=== PATIENT | male | born 1970 | race African-American/Black ===

== ENCOUNTER 2016-10-21 04:51 | Emergency (ER) | payer OTHER ==
[~2016-10-21] VITALS: Ht 182.9 cm; Wt 152.5 kg
[~2016-10-21 04:51] MED LIST: ATEN50TA PO; GABA300C16 PO; LEVO500T72 PO; LISI40TA9 PO; MTF1000T PO; ZOC10 PO
[2016-10-21 04:55] VITALS: Ht 182.9 cm; Wt 152.5 kg
[2016-10-21] MEDS ORDERED: LIDOCAINE 2% (MDV) 20 ML INJ INJ ONE (06:00)
[2016-10-21] MEDS ORDERED: SULF1TAB31 PO (06:19)
[2016-10-21] MEDS ORDERED: CEPH-443 PO (06:19)
[2016-10-21] MEDS ORDERED: IBUP-1542 PO (06:30)
[2016-10-21] MEDS ORDERED: KET2CR15 TOP (06:33)
[2016-10-21] MEDS ORDERED: NYST1000 PO (06:33)
--- NOTE | 2016-10-21 07:07 | ERA ---
ER Documentation Chief Complaint Date/Time DATE: 10/21/16 TIME: 06:52 Chief Complaint abscess back of the head area, accu check -325 asymptomatic HPI This is a 46-year-old male with a history of diabetes mellitus type 2 that is controlled with metformin who is presenting with a chief complaint of abscess on the back of his head. Patient has had symptoms like this before including a pilonidal cyst that was surgically removed 3 years ago. Patient states that the cyst arise 2-3 days ago and is painful to touch. Patient has not taken any medications to relieve the symptoms. Pt denies weight loss, fevers, chills, rigors, nausea, vomiting, diarrhea, constipation, hyperhidrosis, fatigue, difficulty breathing, chest pain, polyuria, polydipsia, dizziness, syncope/ presyncope, or change in bowl/bladder habits. Patient is also complaining of sore lesions on the edge of his lips. Patient states that the symptoms started 1-2 weeks ago and are mildly painful worse when opening the mouth wide. Patient is currently undergoing stress as well as he is preparing to. His father. Denies any family history of cancer, heart disease or asthma. Patient denies drug use, alcohol abuse or other medical conditions. Patient's vaccination status is up-to-date. I have reviewed the nursing notes and previous documents and they are consistent with a history given. Pt denies weight loss, fevers, nausea, vomiting, diarrhea, constipation, hyperhidrosis, rigors, fatigue, difficulty breathing, chest pain, or change in bowl/bladder habits. ROS All systems reviewed and are negative except as per history of present illness. Medications Home Meds Active Scripts Ketoconazole* (Ketoconazole* 2% Cream (15gm)) 1 Applic Cr, 1 APPLIC TOP BID for 14 Days, TUB Prov:CRESCENCIO LAURENT PA-C 10/21/16 Nystatin (Nystatin) 100,000 Unit/1 Ml Oral.susp, 4 ML PO QID for 7 Days, OZ Swish and swallow Prov:CRESCENCIO LAURENT PA-C 10/21/16 Ibuprofen* (Motrin*) 600 Mg Tab, 600 MG PO Q6, #30 TAB Prov:CRESCENCIO LAURENT PA-C 10/21/16 Sulfamethoxazole/Trimethoprim* (Bactrim Ds* Tablet) 1 Each Tablet, 1 TAB PO BID for 7 Days, #14 TAB Prov:CRESCENCIO LAURENT PA-C 10/21/16 Cephalexin* (Keflex*) 500 Mg Capsule, 500 MG PO QID for 5 Days, CAP Prov:CRESCENCIO LAURENT PA-C 10/21/16 Levofloxacin* (Levaquin*) 500 Mg Tablet, 500 MG PO DAILY for 7 Days, TAB Prov:DONOVAN GALVAN MD 09/19/15 Reported Medications Simvastatin (Simvastatin) 10 Mg Tablet, 10 MG PO DAILY, #30 TAB 09/16/15 Metformin* (Glucophage*) 1,000 Mg Tablet, 1000 MG PO BID, #60 TAB 09/15/15 Lisinopril* (Lisinopril*) 40 Mg Tablet, 40 MG PO DAILY, #30 TAB 09/15/15 Gabapentin* (Gabapentin*) 300 Mg Capsule, 300 MG PO BID, CAP 11/13/13 Atenolol* (Atenolol*) 50 Mg Tablet, 50 MG PO DAILY, 0 Refills 11/08/11 Allergies Allergies: Coded Allergies: Erythromycin Base (Verified Allergy, Intermediate, VOMITING , 06/01/14) azithromycin (Unverified Allergy, Unknown, VOMITING , 06/01/14) PMhx/Soc Medical and Surgical Hx: pt denies Surgical Hx History of Surgery: No Anesthesia Reaction: No Hx Neurological Disorder: No Hx Respiratory Disorders: No Hx Cardiac Disorders: No Hx Psychiatric Problems: Yes ( Bipolar, ) Hx Miscellaneous Medical Probl: Yes (htn, DM,obesity) Hx Alcohol Use: Yes (reports "a long time ago") Hx Substance Use: No Hx Tobacco Use: Yes Smoking Status: Current every day smoker Physical Exam Vitals Vital Signs Date Time Temp Pulse Resp B/P Pulse Ox O2 Delivery O2 Flow Rate FiO2 10/21/16 04:55 98.3 93 20 175/92 100 Physical Exam Const: Morbidly obese. Well-nourished. No acute distress. Head: As noted in skin exam. Normocephalic, Atraumatic. Eyes: Non-injected; No scleral erythema, discharge or foreign body. EOMI and JOY bilaterally. Ears: Normal External Ears, EACs clear, TM normal bilaterally without erythema. Nose: Normal nose without discharge, septal deviation, or sinus tenderness. Oral: White angular cheilosis bilaterally. A 3-4 mm round elevated nontender area of tongue without signs of infection. No oral edema visualized. Mucous membranes moist and pink. Neck: No cervical lymphadenopathy, masses or goiter palpated. Full range of motion. Supple. Trachea midline. ~ No meningismus. Pulm: Good air movement in upper and lower respiratory tracts. No dyspnea, stridor, tripoding or drooling. Clear to auscultation bilaterally. Cardio: Regular rate and rhythm; No murmurs, gallops or rubs auscultated. No JVD grossly observed. Radial and posterior tibial pulses 2+ bilaterally. No cyanosis. Capillary refill less than 2 seconds. Abd: Soft, non tender, non distended. No guarding, masses. Normal bowel sounds. No McBurney's point tenderness. MS: Normal motor strength, normal tone with gross examination. Skin: 7-8 cm indurated, tender nonfluctuant area on the left posterior portion of the scalp along the area of the occipital suture. There is no streaking or skin color changes noted. The area is warm to touch. No petechiae or rashes. No ulcer, jaundice. Good turgor. Back: No midline, flank or CVA tenderness. Ext: No cyanosis, or edema. Normal movement of all extremities grossly observed. Neur: Awake, alert and oriented x3. Neurovascularly intact bilaterally. Psych: Normal Mood and Affect. Results 24 hrs Laboratory Tests Test 10/21/16 04:59 Bedside Glucose 325mg/dL Current Medications Medications (Trade) Dose Ordered Sig/Angelo Route PRN Reason Start Time Stop Time Status Last Admin Dose Admin Lidocaine (Xylocaine 2% (Mdv) 20 ml) 20 ml ONCE ONCE INJ 10/21/16 06:00 10/21/16 06:30 DC Procedures/MDM Patient is presenting with a chief complaint of abscess on the back of the head and angular cheilosis as noted in the history and physical examination. Physical examination also revealed a nontender lump on the anterior portion of the tongue is noted in the physical exam portion. Patient states that he recalls possibly putting down on his tongue a few months ago that might have caused the lesion on the tongue. At this time a very low suspicion for acute pathology or edema or endangerment of the airway. I have told the patient that he should follow-up with primary care physician for possible referral to a specialist and biopsy of tongue. Patient's findings on the posterior school are most consistent with abscess without fluctuant material versus cellulitis. At this time I do not believe that the area needs to be drained. Will be prescribed Keflex and Bactrim p.o. 7 days with reevaluation in 5 days. Patient has verbally stated that he understands and agrees to the plan of management. Patient will also be given ibuprofen for pain relief. Patient's angular cheilosis is most likely caused from decreased immune system from diabetes and recent stress. Patient will be given nystatin swish and swallow as well as topical ketoconazole cream for treatment of angular chilosis. At this time I have little suspicion for iron deficiency anemia or other causes of angular cheilosis. Capillary refill is less than 2 seconds and patient's vitals are within normal limits. I have little suspicion for hypotension or other cardiac pathologies. Also little suspicion for leukoplakia, bacteremia, lymphangitis, meningitis, trauma, or other serious bacterial infections. I presented the case to my attending who agrees with my assessment and plan. I will go ahead and discharge the patient at this time with discharge instructions and return precautions. I have also advised the patient to follow- up with his PCP in the next 1-3 days and he has verbally stated that he understands we will not be able to make a total for 5 days. I told him this is okay if he returns to the emergency department immediately if symptoms worsen or change. Patient's vitals are stable and his current condition is appropriate for discharge. Departure Diagnosis: Primary Impression: Cellulitis Qualified Code: L03.811 - Cellulitis of head except face Additional Impressions: Acute abscess Angular cheilitis Lesion of tongue Condition: Stable Patient Instructions: Cellulitis Additional Instructions: Follow up with your PCP within the next 5 days for a more thorough evaluation and a possible referral to a specialist. Return the the emergency department immediately if symptoms worsen or change. If you have any questions regarding medications, ask your pharmacist or us before you leave. If any adverse reactions occur while taking your medications, discontinue the treatment and return to the emergency department immediately. Take your medications as directed, and complete the entire course of treatment. CRESCENCIO LAURENT PA-C Oct 21, 2016 07:03
== END 2016-10-21 07:09 | disposition home or self-care (01) ==
LOC: FTE 04:51
DX: L03.811 Cellulitis of head [any part, except face] (principal); K13.0 Diseases of lips; K14.8 Other diseases of tongue; I10 Essential (primary) hypertension; E11.9 Type 2 diabetes mellitus without complications; E66.9 Obesity, unspecified; F17.210 Nicotine dependence, cigarettes, uncomplicated; Z79.84 Long term (current) use of oral hypoglycemic drugs; Z68.42 Body mass index [BMI] 45.0-49.9, adult
CPT/HCPCS: 82962; Z7502; 99284

== ENCOUNTER 2017-01-05 09:34 | Emergency (ER) | payer OTHER ==
[~2017-01-05] VITALS: Ht 177.8 cm; Wt 151.5 kg
[~2017-01-05 09:34] MED LIST changes: +CEPH-443 PO; +IBUP-1542 PO; +KET2CR15 TOP; +NYST1000 PO; +SULF1TAB31 PO
[2017-01-05 09:39] VITALS: Ht 177.8 cm; Wt 151.5 kg
--- NOTE | 2017-01-05 10:30 | ERD ---
ER Documentation Chief Complaint Date/Time DATE: 01/05/17 TIME: 10:26 Chief Complaint Pt bib family with c/o abscess to back of neck, HPI Is a 46-year-old male with history of diabetes, hypertension presents the ED for concerns of an mass to the back of his neck. Patient states that he has seen his primary care physician as well as been seen here in the emergency department for similar concerns in the past. Patient reports taking Bactrim and Keflex twice for his abscess. Patient reports increasing size. Patient reports no warmth. No swelling. Patient denies any fevers or chills. Patient is compliant with his DM medications. Patient denies any trauma or fall injuries.Patient denied any enlarged lymph nodes in his axilla. ROS All systems reviewed and are negative except as per history of present illness. Medications Home Meds Active Scripts Ketoconazole* (Ketoconazole* 2% Cream (15gm)) 1 Applic Cr, 1 APPLIC TOP BID for 14 Days, TUB Prov:CRESCENCIO LAURENT PA-C 10/21/16 Nystatin (Nystatin) 100,000 Unit/1 Ml Oral.susp, 4 ML PO QID for 7 Days, OZ Swish and swallow Prov:CRESECNCIO LAURENT PA-C 10/21/16 Ibuprofen* (Motrin*) 600 Mg Tab, 600 MG PO Q6, #30 TAB Prov:CRESCENCIO LAURENT PA-C 10/21/16 Sulfamethoxazole/Trimethoprim* (Bactrim Ds* Tablet) 1 Each Tablet, 1 TAB PO BID for 7 Days, #14 TAB Prov:CRESCENCIO LAURENT PA-C 10/21/16 Cephalexin* (Keflex*) 500 Mg Capsule, 500 MG PO QID for 5 Days, CAP Prov:CRESCENCIO LAURENT PA-C 10/21/16 Levofloxacin* (Levaquin*) 500 Mg Tablet, 500 MG PO DAILY for 7 Days, TAB Prov:DONOVAN GALVAN MD 09/19/15 Reported Medications Simvastatin (Simvastatin) 10 Mg Tablet, 10 MG PO DAILY, #30 TAB 09/16/15 Metformin* (Glucophage*) 1,000 Mg Tablet, 1000 MG PO BID, #60 TAB 09/15/15 Lisinopril* (Lisinopril*) 40 Mg Tablet, 40 MG PO DAILY, #30 TAB 09/15/15 Gabapentin* (Gabapentin*) 300 Mg Capsule, 300 MG PO BID, CAP 11/13/13 Atenolol* (Atenolol*) 50 Mg Tablet, 50 MG PO DAILY, 0 Refills 11/08/11 Allergies Allergies: Coded Allergies: Erythromycin Base (Verified Allergy, Intermediate, VOMITING , 06/01/14) azithromycin (Unverified Allergy, Unknown, VOMITING , 06/01/14) PMhx/Soc History of Surgery: Yes (PINEAL CYST ) Anesthesia Reaction: No Hx Neurological Disorder: No Hx Respiratory Disorders: No Hx Cardiac Disorders: No Hx Psychiatric Problems: Yes ( Bipolar, ) Hx Miscellaneous Medical Probl: Yes (htn, DM,obesity) Hx Alcohol Use: Yes (reports "a long time ago") Hx Substance Use: No Hx Tobacco Use: Yes Smoking Status: Current every day smoker Physical Exam Vitals Vital Signs Date Time Temp Pulse Resp B/P Pulse Ox O2 Delivery O2 Flow Rate FiO2 01/05/17 13:38 98.2 71 18 138/69 98 Room Air 01/05/17 09:39 98.3 86 18 138/99 98 Physical Exam GENERAL: Well-developed, well-nourished male. Appears in no acute distress. HEAD: Normocephalic, atraumatic. EYES: Pupils are equally reactive bilaterally. EOMs grossly intact. No conjunctival erythema. ENT: Moist mucous membranes. No uvula deviation. No kissing tonsils. NECK: Supple. No meningismus. Normal range of motion of the neck. Large palpable mass in the posterior neck. Minimal warmth. No swelling. No streaking. No cervical lymph nodes palpable. No supraclavicular lymph nodes palpable. LUNG: Clear to auscultation bilaterally. No rhonchi, wheezing, rales or coarse breath sounds. HEART: Regular rate and rhythm. No murmurs, rubs or gallops. EXTREMITIES: Equal pulses bilaterally. No peripheral clubbing, cyanosis or edema. No unilateral leg swelling. NEUROLOGIC: Alert and oriented. Moving all four extremities without any difficulty. Normal speech. Steady gait. SKIN: Normal color. Warm and dry. No rashes or lesions. Result Diagram: 01/05/17 1200 01/05/17 1200 Results 24 hrs Laboratory Tests Test 01/05/17 12:00 White Blood Count 7.410^3/ul Red Blood Count 5.3610^6/ul Hemoglobin 15.5g/dl Hematocrit 44.4% Mean Corpuscular Volume 82.8fl Mean Corpuscular Hemoglobin 28.9pg Mean Corpuscular Hemoglobin Concent 34.9g/dl Red Cell Distribution Width 12.5% Platelet Count 92800^3/UL Mean Platelet Volume 10.7fl Neutrophils % 57.5% Lymphocytes % 31.8% Monocytes % 6.5% Eosinophils % 3.7% Basophils % 0.4% Nucleated Red Blood Cells % 0.0/100WBC Neutrophils # (Manual) 4.210^3/ul Lymphocytes # 2.410^3/ul Monocytes # 0.510^3/ul Eosinophils # 0.310^3/ul Basophils # 0.010^3/ul Nucleated Red Blood Cells # 0.010^3/ul Sodium Level 132mmol/L Potassium Level 4.4mmol/L Chloride Level 102mmol/L Carbon Dioxide Level 25mmol/L Anion Gap 9 Blood Urea Nitrogen 12mg/dl Creatinine 0.82mg/dl Glucose Level 384mg/dl Calcium Level 9.4mg/dl Procedures/MDM ED COURSE: The patient was stable throughout ED course. I kept the patient and/or family informed of laboratory and diagnostic imaging results throughout the ED course. DIAGNOSTIC IMAGING: Read by radiologist. Patient: ANNABELLA MCNEAL : 1970 Age: 46 Sex: M MR #: [id number] DOS: 01/05/17 1005 Ordering MD: AMELIA CORTES PA-C Location: [facility] Room/Bed: PROCEDURE: Ultrasound of the soft tissues of the neck. CLINICAL INDICATION: Palpable lesion in the soft tissues of the neck posteriorly. TECHNIQUE: High-resolution sonography of the soft tissues of the neck posteriorly at the site of the palpable lesion was performed in the axial and sagittal planes. COMPARISON: None FINDINGS: At the site of the palpable lesion in the posterior neck midline, there is a heterogeneous hypoechoic irregular soft tissue mass measuring 3.9 x 2.7 x 4.1 cm. Slightly inferior to this mass, there is a second anechoic subcutaneous mass measuring 2.4 x 1.2 x 2.1 cm. There is no other cystic or solid mass. IMPRESSION: 1. Heterogeneous hypoechoic irregular soft tissue mass measuring 3.9 x 2.7 x 4.1 cm in the posterior neck midline at the site of the palpable lesion. This may be malignant. Correlation with MRI should be considered. 2. Second probably cystic mass in the midline posterior neck inferiorly. RPTAT: QQ .Cesar Parish MD, Date Time Electronically viewed and signed by .Cesar Parish MD, MD on 01/05/2017 10:53 .R/ CC: AMELIA CORTES PA-C PROCEDURES: None. MEDICAL DECISION MAKING: Patient is a 46-year-old male with past medical history of diabetes presents for concerns of an abscess to the back of his neck. Patient reports a maximum of his neck for about a month. Patient reports taking numerous courses of antibiotics. Denies any fevers or chills. Vital signs were reviewed. Patient is afebrile. Patient was not hypoxic. Ultrasound study was obtained and showed 1. Heterogeneous hypoechoic irregular soft tissue mass measuring 3.9 x 2.7 x 4.1 cm in the posterior neck midline at the site of the palpable lesion. This may be malignant. Correlation with MRI should be considered. 2. Second probably cystic mass in the midline posterior neck inferiorly. Discussed these findings with my supervising physician Dr. Dawson. He advised me to order blood work. CBC showed no evidence of systemic infection or severe anemia. CMP showed no evidence significant of electrolyte abnormalities, severe acidosis, alkalosis, renal failure. Patient's glucose was noted to be 384. Patient's bicarb was within normal limits. Low suspicion for DKA at this time given that patient denied any additional symptoms and reported not taking his DM medications this morning. At this time the patient's presentation is most consistent with posterior neck mass. Low suspicion for cellulitis, abscess, deep space infection, hematoma, carotid vessel injury. Patient was advised to follow-up with his primary care physician and obtain an referral to a ENT specialist in order to have this mass biopsied. Unable to rule out malignancy at this time. DISCHARGE: At this time, patient is stable for discharge and outpatient management. Patient was given a copy of all imaging studies obtained today.I have instructed the patient to follow-up with his/her primary care physician in 1-2 days. I have discussed with the patient the possibility of needing to see a specialist for further workup and imaging studies if symptoms persist. I have instructed the patient to promptly return to the ER for any new or worsening symptoms including increased pain, fever, nausea, vomiting, weakness or LOC. The patient and/or family expressed understanding of and agreement with this plan. All questions were answered. Home care instructions were provided. Patient's random blood sugar level was elevated (>140), but appears stable without evidence of DKA or end organ failure. I had discussion with the patient about the risk of diabetes. I have advised the patient to follow up with his/her primary care physician for outpatient monitoring and treatment for elevated blood sugar levels in 2-3 days. I have instructed the patient to return to the ER for any new or worsening symptoms including chest pain, shortness of breath, headache, confusion, abdominal pain, nausea, vomiting, weakness or LOC. Patient's blood pressure was elevated (>120/80) but appears stable without evidence of hypertensive emergency, hypertensive urgency or end-organ failure. I had discussion with the patient about the risks of hypertension. I have advised the patient to follow up with his/her primary care physician for outpatient monitoring and treatment for hypertension in 2-3 days. I have instructed the patient to return to the ER for any new or worsening symptoms including chest pain, shortness of breath, headache, blurred vision, confusion, nausea, vomiting or LOC. Disclaimer: Inadvertent spelling and grammatical errors are likely due to EHR/ dictation software use and do not reflect on the overall quality of patient care. Also, please note that the electronic time recorded on this note does not necessarily reflect the actual time of the patient encounter. Departure Diagnosis: Primary Impression: Neck mass Condition: Stable Patient Instructions: Back And Neck Pain, General, Understanding Neck Problems Referrals: ЕЛЕНА TALLEY (PCP) LEE WHEATLEY MD,UMER OSBORNE,STEFANIA WINN,SCOTT Oneil MD [facility] Additional Instructions: Follow-up with your primary care physician for referral to an ENT specialist for further management of your neck mass. Take ultrasound findings and blood work. Call your primary care doctor TOMORROW for an appointment during the next 1-2 days.See the doctor sooner or return here if your condition worsens before your appointment time. AMELIA CORTES PA-C Jan 05, 2017 10:30 days.See the doctor sooner or return here if your condition worsens before your appointment time. AMELIA CORTES PA-C Jan 05, 2017 10:30
--- NOTE | 2017-01-05 10:53 | RADRPT ---
PROCEDURE: Ultrasound of the soft tissues of the neck. CLINICAL INDICATION: Palpable lesion in the soft tissues of the neck posteriorly. TECHNIQUE: High-resolution sonography of the soft tissues of the neck posteriorly at the site of t he palpable lesion was performed in the axial and sagittal planes. COMPARISON: None FINDINGS: At the site of the palpable lesion in the posterior neck midline, there is a heterogeneous hypoechoi c irregular soft tissue mass measuring 3.9 x 2.7 x 4.1 cm. Slightly inferior to this mass, there is a second anechoic subcutaneous mass measuring 2.4 x 1.2 x 2.1 cm. There is no other cystic or solid mass. IMPRESSION: 1. Heterogeneous hypoechoic irregular soft tissue mass measuring 3.9 x 2.7 x 4.1 cm in the posterio r neck midline at the site of the palpable lesion. This may be malignant. Correlation with MRI shoul d be considered. 2. Second probably cystic mass in the midline posterior neck inferiorly. RPTAT: QQ .Cesar Parish MD, MD Date Time Electronically viewed and signed by .Cesar Parish MD, on 01/05/2017 10:53 .R/
[2017-01-05 12:18] LABS: BASOPHILS % 0.4 % (0.0-2.0); EOSINOPHILS # 0.3 10^3/ul (0.0-0.5); EOSINOPHILS % 3.7 % (0.0-7.0); HEMATOCRIT 44.4 % (42.0-52.0); HEMOGLOBIN 15.5 g/dl (14.0-18.0); LYMPHOCYTES # 2.4 10^3/ul (0.8-2.9); LYMPHOCYTES % 31.8 % (15.0-51.0); MEAN CORPUSCULAR HEMOGLOBIN 28.9 pg (29.0-33.0); MEAN CORPUSCULAR HGB CONC 34.9 g/dl (32.0-37.0); MEAN CORPUSCULAR VOLUME 82.8 fl (82.0-101.0); MEAN PLATELET VOLUME 10.7 fl (7.4-10.4); MONOCYTE # 0.5 10^3/ul (0.3-0.9); MONOCYTES % 6.5 % (0.0-11.0); NEUTROPHILS % 57.5 % (39.0-77.0); PLATELET COUNT 147 10^3/UL (140-415); RED BLOOD COUNT 5.36 10^6/ul (4.70-6.10); RED CELL DISTRIBUTION WIDTH 12.5 % (11.5-14.5); WHITE BLOOD COUNT 7.4 10^3/ul (4.8-10.8)
[2017-01-05 12:36] LABS: CALCIUM 9.4 mg/dl (8.4-10.2); CREATININE 0.82 mg/dl (0.61-1.24); POTASSIUM 4.4 mmol/L (3.5-5.1)
[2017-01-05 13:38] VITALS: BP 138/69; PULSE 71; RESP 18; TEMP 98.2
== END 2017-01-05 13:39 | disposition home or self-care (01) ==
LOC: FTE 09:34
DX: R22.1 Localized swelling, mass and lump, neck (principal); I10 Essential (primary) hypertension; E11.9 Type 2 diabetes mellitus without complications; F17.210 Nicotine dependence, cigarettes, uncomplicated; E66.9 Obesity, unspecified; Z68.42 Body mass index [BMI] 45.0-49.9, adult; Z79.84 Long term (current) use of oral hypoglycemic drugs
CPT/HCPCS: 76536; 80048; 85025; Z7502

== ENCOUNTER 2017-07-06 01:13 | Emergency (ER) | END 2017-07-06 05:24 | disposition left against medical advice (07) ==

== ENCOUNTER 2017-07-14 10:57 | Emergency (ER) | END 2017-07-14 12:36 | disposition home or self-care (01) ==

== ENCOUNTER 2017-07-15 18:04 | Emergency (ER) | END 2017-07-15 21:02 | disposition left against medical advice (07) ==

== ENCOUNTER 2017-07-16 04:35 | Emergency (ER) | END 2017-07-16 12:04 | disposition home or self-care (01) ==

== ENCOUNTER 2017-07-17 13:13 | Emergency (ER) | END 2017-07-17 13:55 | disposition home or self-care (01) ==

== ENCOUNTER 2018-01-11 09:55 | Emergency (ER) | END 2018-01-11 12:02 | disposition home or self-care (01) ==

== ENCOUNTER → 2018-11-07 | Emergency (ER) | payer OTHER ==
[~2018-11-07] VITALS: Ht 180.3 cm; Wt 151.9 kg
[~2018-11-07] MED LIST changes: +HYDR-4011 PO; +LEVO500T48 PO; -LEVO500T72 PO; +LISI40TA3 PO; -LISI40TA9 PO
[2018-11-07 20:38] VITALS: BP 150/67; PULSE 88; RESP 18; Ht 180.3 cm; Wt 151.9 kg
--- NOTE | 2018-11-09 05:38 | ERD ---
ER Documentation Chief Complaint Chief Complaint states swelling/lump around genital area x 1 week HPI This is a 48-year-old -[place] male with history of diabetes who presents with complaints of an area of pain and swelling to his left perineum x1 week. Patient states he believes is related to his prostate. He states he had his prostate checked 3 days ago which was normal. He does report some nausea. No vomiting. No testicular swelling or pain. No urinary symptoms. No other complaints. ROS All systems reviewed and are negative except as per history of present illness. Medications Home Meds Active Scripts Hydrocodone/Acetaminophen ([place] 5-325 Tablet) 1 Each Tablet, 1 EACH PO Q6 PRN for PAIN, #10 TAB Prov:IVANNA SWENSON MD 07/16/17 Cephalexin* (Keflex*) 500 Mg Capsule, 500 MG PO Q6, #56 CAP Prov:IVANNA SWENSON MD 07/16/17 Sulfamethoxazole/Trimethoprim* (Bactrim Ds* Tablet) 1 Each Tablet, 1 TAB PO BID, #14 TAB Prov:IVANNA SWENSON MD 07/16/17 Hydrocodone/Acetaminophen ([place] 5-325 Tablet) 1 Each Tablet, 1 TAB PO Q6H PRN for PAIN, #20 TAB Prov:MECCA SEGURA 07/14/17 Ketoconazole* (Ketoconazole* 2% Cream (15gm)) 1 Applic Cr, 1 APPLIC TOP BID for 14 Days, TUB Prov:CRESCENCIO LAURENT PA-C 10/21/16 Nystatin (Nystatin) 100,000 Unit/1 Ml Oral.susp, 4 ML PO QID for 7 Days, OZ Swish and swallow Prov:CRESCENCIO LAURENT PA-C 10/21/16 Ibuprofen* (Motrin*) 600 Mg Tab, 600 MG PO Q6, #30 TAB Prov:CRESCENCIO LAURENT PA-C 10/21/16 Sulfamethoxazole/Trimethoprim* (Bactrim Ds* Tablet) 1 Each Tablet, 1 TAB PO BID for 7 Days, #14 TAB Prov:CRESCENCIO LAURENT PA-C 10/21/16 Cephalexin* (Keflex*) 500 Mg Capsule, 500 MG PO QID for 5 Days, CAP Prov:CRESCENCIO LAURENT PA-C 10/21/16 Levofloxacin* (Levaquin*) 500 Mg Tablet, 500 MG PO DAILY for 7 Days, TAB Prov:DONOVAN GALVAN MD 09/19/15 Reported Medications Simvastatin (Simvastatin) 10 Mg Tablet, 10 MG PO DAILY, #30 TAB 09/16/15 Metformin* (Glucophage*) 1,000 Mg Tablet, 1000 MG PO BID, #60 TAB 09/15/15 Lisinopril* (Lisinopril*) 40 Mg Tablet, 40 MG PO DAILY, #30 TAB 09/15/15 Gabapentin* (Gabapentin*) 300 Mg Capsule, 300 MG PO BID, CAP 11/13/13 Atenolol* (Atenolol*) 50 Mg Tablet, 50 MG PO DAILY, 0 Refills 11/08/11 Allergies Allergies: Coded Allergies: erythromycin base (Verified Allergy, Intermediate, VOMITING , 07/14/17) azithromycin (Unverified Allergy, Unknown, VOMITING , 07/14/17) PMhx/Soc History of Surgery: Yes (pineal cyst removed) Anesthesia Reaction: No Hx Neurological Disorder: No Hx Respiratory Disorders: No Hx Cardiac Disorders: Yes (HTN) Hx Psychiatric Problems: Yes (bipolar) Hx Miscellaneous Medical Probl: Yes (DM,obesity) Hx Alcohol Use: Yes (reports "a long time ago") Hx Substance Use: No Hx Tobacco Use: Yes Smoking Status: Current some day smoker Physical Exam Vitals Vital Signs Date Temp Pulse Resp B/P (MAP) Pulse Ox O2 O2 Flow FiO2 Time Delivery Rate 11/07/18 97.6 88 18 150/67 98 20:38 (94) Physical Exam Const: No acute distress Head: Atraumatic Eyes: Normal Conjunctiva ENT: Normal External Ears, Nose and Mouth. Abd: Soft, non tender, non distended. Normal bowel sounds Exam: Scrotum: Normal Hernia: None Testes/Epid: Non-tender w/ normal lie, + swelling and tenderness to the left perineum. Cremaster: Reflex intact Lymph: No inguinal lymphadenopathy Discharge: None Skin: No petechiae or rashes Back: No midline or flank tenderness Ext: No cyanosis, or edema Neur: Awake and alert Psych: Normal Mood and Affect Results 24 hrs Laboratory Tests Test 11/07/18 23:17 Urine Color YELLOW Urine Clarity CLEAR Urine pH 5.0 Urine Specific [place] 1.035 Urine Ketones NEGATIVE mg/dL Urine Nitrite NEGATIVE mg/dL Urine Bilirubin NEGATIVE mg/dL Urine Urobilinogen 1+ mg/dL Urine Leukocyte Esterase NEGATIVE Lelo/ul Urine Microscopic RBC 1 /HPF Urine Microscopic WBC 0 /HPF Urine Mucus FEW /HPF Urine Hemoglobin NEGATIVE mg/dL Urine Glucose 3+ mg/dL Urine Total Protein 1+ mg/dl Procedures/MDM LABS & DIAGNOSTIC IMAGING: Urine: + glucosuria MEDICAL DECISION MAKING: This is a 48-year-old -[place] male with diabetes who presents with pain and swelling to his left perineum. He has no evidence of hernia on physical exam. His UA is unremarkable for infection however does have some glucosuria, likely related to his diabetes. He has no further evidence of DKA or HHS. Testicular ultrasound was ordered to rule out epididymitis and testicular torsion. Patient had eloped the department prior to getting his ultrasound done. Patient remained afebrile and stable throughout his course of stay here. Departure Diagnosis: Primary Impression: Perineum pain, male Condition: Stable LALITHA CRESPO PA-C Nov 09, 2018 05:38
== END | disposition home or self-care (01) ==
LOC: FTE 20:31
DX: R10.2 Pelvic and perineal pain (principal); E11.9 Type 2 diabetes mellitus without complications; I10 Essential (primary) hypertension; E66.9 Obesity, unspecified; F17.210 Nicotine dependence, cigarettes, uncomplicated; Z68.42 Body mass index [BMI] 45.0-49.9, adult; Z79.84 Long term (current) use of oral hypoglycemic drugs
CPT/HCPCS: 81001; Z7502; 99283

== ENCOUNTER 2018-11-13 08:36 | Emergency (ER) | payer OTHER ==
[~2018-11-13] VITALS: Ht 182.9 cm; Wt 152.4 kg
[2018-11-13 08:37] VITALS: Ht 182.9 cm; Wt 152.4 kg
[2018-11-13] MEDS ORDERED: SOD CHLORIDE 0.9% 1,000 ML IV ONE (09:30)
[2018-11-13] MEDS ORDERED: FENTAnyl 50 MCG/ML VIAL IV ONE (09:30)
[2018-11-13] MEDS ORDERED: MULT-843 PO (11:05)
[2018-11-13] MEDS ORDERED: IOHEXOL 300MG/ML 150 ML BTL ONE (11:06)
[2018-11-13] MEDS ORDERED: SOD CHLORIDE 0.9% 100 ML ONE (11:06)
[2018-11-13] MEDS ORDERED: METF100010 PO (12:26)
[2018-11-13] MEDS ORDERED: ATEN50TA PO (12:26)
[2018-11-13] MEDS ORDERED: LISI40TA3 PO (12:26)
--- NOTE | 2018-11-13 13:03 | ERD ---
ER Documentation Chief Complaint Chief Complaint abdominal pain/ scrotal pain - possible hernia HPI This is a 48-year-old male with a past medical history of hypertension, hyperlipidemia, diabetes presenting to the emergency department today for progressive worsening left-sided scrotal pain and swelling. The patient noticed this discomfort approximately a month ago, but over the last few days he felt that the swelling and pain was getting worse. He noticed increased tissue on the left side of his scrotum, and he was concerned about the possibility of a hernia. He does not endorse any dysuria or hematuria or urgency or frequency. The patient is monogamous with one partner and does not believe he could have a sexually transmitted infection. He has not noticed any urethral discharge. The patient did also notice a hard indurated area of the perineum that he wanted to have evaluated. The patient denies feeling sick recently. The patient denies fever or chills. The patient has had no headache or vision changes. The patient does not endorse neck or back pain. The patient denies lightheadedness or dizziness. The patient has had no chest pain or trouble breathing. The patient denies nausea or vomiting. The patient denies abdominal pain. The patient denies changes to bowel movements or urination. The patient has had no focal deficits. The patient has had no weakness or numbness or tingling to the face or extremities. ROS All systems reviewed and are negative except as per history of present illness. Medications Home Meds Reported Medications Metformin Hcl* (Metformin Hcl*) 1,000 Mg Tablet, 1000 MG PO WITH BREAKFAST, #30 TAB 11/13/18 Lisinopril* (Lisinopril*) 40 Mg Tablet, 40 MG PO DAILY, #30 TAB 11/13/18 Atenolol* (Atenolol*) 50 Mg Tablet, 50 MG PO DAILY, #30 TAB 11/13/18 Multivits,Ca,Minerals/Iron/FA (Thera M Plus Tablet) 1 Each Tablet, 1 EACH PO DAILY, TAB 11/13/18 Discontinued Reported Medications Simvastatin (Simvastatin) 10 Mg Tablet, 10 MG PO DAILY, #30 TAB 09/16/15 Metformin* (Glucophage*) 1,000 Mg Tablet, 1000 MG PO BID, #60 TAB 09/15/15 Lisinopril* (Lisinopril*) 40 Mg Tablet, 40 MG PO DAILY, #30 TAB 09/15/15 Gabapentin* (Gabapentin*) 300 Mg Capsule, 300 MG PO BID, CAP 11/13/13 Atenolol* (Atenolol*) 50 Mg Tablet, 50 MG PO DAILY, 0 Refills 11/08/11 Discontinued Scripts Hydrocodone/Acetaminophen ([place] 5-325 Tablet) 1 Each Tablet, 1 EACH PO Q6 PRN for PAIN, #10 TAB Prov:IVANNA SWENSON MD 07/16/17 Cephalexin* (Keflex*) 500 Mg Capsule, 500 MG PO Q6, #56 CAP Prov:IVANNA SWENSON MD 07/16/17 Sulfamethoxazole/Trimethoprim* (Bactrim Ds* Tablet) 1 Each Tablet, 1 TAB PO BID, #14 TAB Prov:IVANNA SWENSON MD 07/16/17 Hydrocodone/Acetaminophen ([place] 5-325 Tablet) 1 Each Tablet, 1 TAB PO Q6H PRN for PAIN, #20 TAB Prov:MECCA SEGURA 07/14/17 Ketoconazole* (Ketoconazole* 2% Cream (15gm)) 1 Applic Cr, 1 APPLIC TOP BID for 14 Days, TUB Prov:CRESCENCIO LAURENT PA-C 10/21/16 Nystatin (Nystatin) 100,000 Unit/1 Ml Oral.susp, 4 ML PO QID for 7 Days, OZ Swish and swallow Prov:CRESCENCIO LAURENT PA-C 10/21/16 Ibuprofen* (Motrin*) 600 Mg Tab, 600 MG PO Q6, #30 TAB Prov:CRESCENCIO LAURENT PA-C 10/21/16 Sulfamethoxazole/Trimethoprim* (Bactrim Ds* Tablet) 1 Each Tablet, 1 TAB PO BID for 7 Days, #14 TAB Prov:CRESCENCIO LAURENT PA-C 10/21/16 Cephalexin* (Keflex*) 500 Mg Capsule, 500 MG PO QID for 5 Days, CAP Prov:CRESCENCIO LAURENT PA-C 10/21/16 Levofloxacin* (Levaquin*) 500 Mg Tablet, 500 MG PO DAILY for 7 Days, TAB Prov:DONOVAN GALVAN MD 09/19/15 Allergies Allergies: Coded Allergies: erythromycin base (Verified Allergy, Intermediate, VOMITING , 07/14/17) azithromycin (Unverified Allergy, Unknown, VOMITING , 07/14/17) PMhx/Soc History of Surgery: Yes (pineal cyst removed) Anesthesia Reaction: No Hx Neurological Disorder: No Hx Respiratory Disorders: No Hx Cardiac Disorders: Yes (HTN) Hx Psychiatric Problems: Yes (bipolar) Hx Miscellaneous Medical Probl: Yes (DM,obesity) Hx Alcohol Use: Yes (reports "a long time ago") Hx Substance Use: No Hx Tobacco Use: Yes Smoking Status: Current every day smoker FmHx Family History: No diabetes Physical Exam Vitals Vital Signs Date Temp Pulse Resp B/P (MAP) Pulse Ox O2 O2 Flow FiO2 Time Delivery Rate 11/13/18 98.3 74 24 157/72 99 08:37 (100) Physical Exam Const: No acute distress Head: Atraumatic Eyes: Normal Conjunctiva ENT: Normal External Ears, Nose and Mouth. Neck: Full range of motion. No meningismus. Resp: Clear to auscultation bilaterally Cardio: Regular rate and rhythm, no murmurs Abd: Obesity. Soft, non tender, non distended. Normal bowel sounds : Utility Teller present at all times. Left epididymal edema and tenderness. Normal right epididymis. No testicular edema or tenderness. 4 cm area of induration on the left perineum without erythema or fluctuance or warmth. Skin: No petechiae or rashes Back: No midline or flank tenderness Ext: No cyanosis, or edema Neur: Awake and alert Psych: Normal Mood and Affect Result Diagram: 11/13/18 1011 11/13/18 1011 Results 24 hrs Laboratory Tests Test 11/13/18 10:10 11/13/18 10:11 Urine Color YELLOW Urine Clarity CLEAR Urine pH 5.0 Urine Specific [place] 1.020 Urine Ketones NEGATIVE mg/dL Urine Nitrite NEGATIVE mg/dL Urine Bilirubin NEGATIVE mg/dL Urine Urobilinogen NEGATIVE mg/dL Urine Leukocyte Esterase NEGATIVE Lelo/ul Urine Hemoglobin NEGATIVE mg/dL Urine Glucose NEGATIVE mg/dL Urine Total Protein NEGATIVE mg/dl White Blood Count 8.3 10^3/ul Red Blood Count 5.28 10^6/ul Hemoglobin 14.7 g/dl Hematocrit 43.4 % Mean Corpuscular Volume 82.2 fl Mean Corpuscular Hemoglobin 27.8 pg Mean Corpuscular Hemoglobin Concent 33.9 g/dl Red Cell Distribution Width 13.2 % Platelet Count 148 10^3/UL Mean Platelet Volume 10.4 fl Immature Granulocytes % 0.200 % Neutrophils % 63.9 % Lymphocytes % 25.9 % Monocytes % 7.0 % Eosinophils % 2.8 % Basophils % 0.2 % Nucleated Red Blood Cells % 0.0 /100WBC Immature Granulocytes # 0.020 10^3/ul Neutrophils # 5.3 10^3/ul Lymphocytes # 2.2 10^3/ul Monocytes # 0.6 10^3/ul Eosinophils # 0.2 10^3/ul Basophils # 0.0 10^3/ul Nucleated Red Blood Cells # 0.0 10^3/ul Prothrombin Time 12.0 Sec Prothrombin Time Ratio 0.9 INR International Normalized Ratio 0.88 Sodium Level 139 mmol/L Potassium Level 4.2 mmol/L Chloride Level 104 mmol/L Carbon Dioxide Level 26 mmol/L Anion Gap 9 Blood Urea Nitrogen 13 mg/dl Creatinine 0.89 mg/dl Est Glomerular Filtrat Rate mL/min > 60 mL/min Glucose Level 148 mg/dl Calcium Level 9.8 mg/dl Total Bilirubin 0.3 mg/dl Direct Bilirubin 0.00 mg/dl Indirect Bilirubin 0.3 mg/dl Aspartate Amino Transf (AST/SGOT) 22 IU/L Alanine Aminotransferase (ALT/SGPT) 29 IU/L Alkaline Phosphatase 89 IU/L Total Protein 7.0 g/dl Albumin 3.7 g/dl Globulin 3.30 g/dl Albumin/Globulin Ratio 1.12 Current Medications Medications Dose Sig/Angelo Start Time Status Last (Trade) Ordered Route PRN Stop Time Admin Dose Reason Admin Sodium 1,000 ml @ Q1H ONCE 11/13/18 DC 11/13/18 Chloride 1,000 mls/hr IV 09:30 10:25 11/13/18 10:29 Fentanyl 50 mcg ONCE ONCE 11/13/18 DC 11/13/18 (Sublimaze) IV 09:30 10:29 11/13/18 09:31 IV Flush 10 ml STK-MED 11/13/18 DC 11/13/18 (NS 10 ml) ONCE .ROUTE 11:06 11:57 11/13/18 11:07 Sodium 100 ml @ ud STK-MED 11/13/18 DC 11/13/18 Chloride ONCE .ROUTE 11:06 11:57 11/13/18 11:07 Iohexol 150 ml STK-MED 11/13/18 DC 11/13/18 (Omnipaque ONCE .ROUTE 11:06 11:57 300mg/ ml) 11/13/18 11:07 Procedures/MDM MDM The patient's presentation warrants further investigation. Previous medical records, if available, were reviewed. LABS The patient's laboratory testing was obtained and reviewed. No emergent treatment was required unless described below. CBC: No E/o systemic infection or severe anemia or thrombocytopenia Chemistry: No E/o severe acidosis or alkalosis or renal failure or liver disease or diabetic ketoacidosis PT/INR: No E/o significant coagulopathy Urine: No E/o acute infection or hematuria IMAGING Imaging and Radiology interpretation reviewed. Ultrasound scrotum FINDINGS: The testicles are normal in size with the right measuring 4.11 x 2.64 x 3.67 cm and the left measuring 4.83 x 1.97 x 3.2 cm. There is flow to both testicles without ultrasonic evidence of testicular torsion. Micro calcification within the superior pole of the left testicle. No evidence of testicular masses. The left epididymis is enlarged measuring 3.36 x 1.8 x 1.65 cm and rule out epididymitis. Within the left epididymal head is a tiny 0.4 cm cyst. No other focal left epididymal lesions. The right epididymis is normal in size measuring 1.12 x 1.19 x 1.4 cm without focal lesions. Bilateral hydroceles larger on the right. IMPRESSION: 1. Normal size testicles without ultrasonic evidence of testicular torsion. 2. Microcalcification involving the superior left testicle. No testicular masses. 3. Enlarged left epididymis and rule out epididymitis. Tiny 0.4 cm left epididymal head cyst. 4. Unremarkable right epididymis. 5. Bilateral hydroceles larger on the right. Electronically viewed and signed by Physician Sarahy on 11/13/2018 10:44 CT Abd/Pelvis FINDINGS: CT abdomen: The lung bases are clear. The heart size is within normal limits. There is no significant pericardial effusion. Hepatic morphology is within normal limits. No gross contour deforming masses. The gallbladder is within normal limits. No evidence of intrahepatic or extrahepatic biliary dilatation. The spleen and pancreas are within normal limits. Both adrenal glands are within normal limits. Both kidneys are in normal anatomic position. No evidence of obstruction or hydronephrosis. No gross renal/ureteric calculi. The visualized GI tract demonstrate normal caliber loops of small and large bowel. No obstruction. Stool filled loops of large bowel suggestive of constipation. The appendix is within normal limits. There is colonic diverticulosis. Aorta is unremarkable. No significant retroperitoneal lymphadenopathy. CT pelvis: The bladder is within normal limits. The prostate is normal size. Rectosigmoid colon demonstrates stool and diverticulosis. No significant free fluid. No significant pelvic lymphadenopathy. The visualized osseous structures demonstrates multilevel degenerative disc disease of the lumbosacral spine. Generalized facet arthropathy is noted. IMPRESSION: 1. No evidence of acute intra-abdominal/pelvic inflammatory process. No evidence of bowel obstruction. Stool filled loops of large bowel suggestive of constipation. The appendix is within normal limits. 2. No gross renal/ureteric calculi. No evidence of obstructive uropathy. 3. Sigmoid colon diverticulosis without evidence of diverticulitis. 4. No evidence of free fluid or free air. No gross focal fluid collections. Electronically viewed and signed by Physician Quynh on 11/13/2018 12:23 TREATMENT/DISPOSITION The patient's presenting for left-sided scrotal pain. The patient does have evidence of epididymitis, which will be treated in outpatient setting. Bilateral hydroceles are also evident on the ultrasound. These do not require emergent treatment. The patient's urinalysis is reassuring and there is no evidence of urinary tract infection. I do not suspect a sexually transmitted infection. There is no evidence of testicular torsion. There is no evidence of testicular masses. The patient also had an area of induration to the perineum. A CT was completed to evaluate for the possibility of Sita's gangrene. The CT scan was reassuring. The patient does have evidence of constipation but no obstruction. The patient does not have any evidence of appendicitis. There is no evidence of renal or urologic pathology. The patient does have diverticulosis without diverticulitis. The patient may follow up with his primary care physician for these incidental findings. DISCHARGE Upon reevaluation of the patient, symptoms have improved. No emergent diagnoses were identified. At this time, I feel that the patient stable for discharge. The patient was instructed to follow-up with a primary care physician in 1-3 days. The patient will be given strict precautions with which to return to the emergency department. Prescriptions: Levaquin, ibuprofen The patient's blood pressure was elevated at greater than 120/80 while in the emergency department. The patient was otherwise stable with no evidence of h ypertensive urgency or emergency. The patient does not require admission for blood pressure control. I have discussed with the patient the risks of hypertension. I have instructed the patient to return to the ER for any new or worsening symptoms including chest pain, shortness of breath, headache, blurred vision, confusion, nausea, vomiting or LOC. I have advised the patient to follow up with the primary care physician for outpatient monitoring and treatment for hypertension in 1-3 days. Disclaimer: Inadvertent spelling and grammatical errors are likely due to EHR/dictation software use and do not reflect on the overall quality of patient care. Note that the electronic time recorded on this note does not necessarily reflect the actual time of the patient encounter. Departure Diagnosis: Primary Impression: Epididymitis, left Additional Impressions: Bilateral hydrocele Constipation Constipation type: unspecified constipation type Qualified Codes: K59.00 - Constipation, unspecified Diverticulosis Condition: Stable Patient Instructions: Constipation (Adult), Diverticulosis, Epididymitis Referrals: VIPUL HINES MD Additional Instructions: Thank you for for coming to [facility] for your care today. Please ask your nurse or provider if you have questions about your care today and do not leave until all your questions have been answered. Please use any medications given as directed and follow-up with your doctor (or the doctor you were referred to) in the next 1-3 days. If you do not have a primary care doctor you may follow up at the [facility] or [facility] (listed below). You may also use motrin and tylenol as needed for fever and/or pain unless instructed otherwise by your provider or nurse. Indications for more urgent follow-up have been discussed, but you may return to the Emergency Department at ANY time for any worrisome or worsening symptoms. If you have abdominal pain, please know that no test or exam you received is perfect and you should follow up within 8 hours for continued pain. If you had any imaging studies today, such as an X-Ray or CT Scan, these studies will be reviewed later by a radiologist. You will be called if there are important findings that were not identified today, so make sure the contact information you provided at registration is correct. If you received any narcotic pain control medicine today, such as Vicodin, Morphine or Dilaudid, your coordination and judgment may be affected for a number of hours. Please do not drive or operate heavy machinery, and you may want someone to assist you at home. If you were given a prescription for narcotic medication, be aware that it is very addictive- use sparingly and only if necessary. PLEASE SEEK FURTHER EVALUATION AND MANAGEMENT AT YOUR DOCTORS OFFICE WITHIN THE NEXT 1-3 DAYS. IT IS YOUR RESPONSIBILITY TO MAKE AN APPOINTMENT FOR FOLOW-UP CARE. IF YOU HAVE A PRIMARY DOCTOR, PLEASE CALL THEIR OFFICE TO SCHEDULE AN APPO INTMENT FOR FOLLOW UP. IF YOU DO NOT HAVE A PRIMARY DOCTOR YOU CAN CALL OUR PHYSICIAN REFERRAL HOTLINE AT IF YOU CAN NOT AFFORD TO SEE A PHYSICIAN YOU CAN CHOSE FROM THE FOLLOWING [facility] CLINICS: [facility] [address] [facility] [place] [address] [facility] [facility] [address] [facility] [address] [facility]. [facility] [address]. [facility]. [address] KRYSTEN MCDONALD MD Nov 13, 2018 13:02
[2018-11-13] MEDS ORDERED: LEVO750T25 PO (13:05)
[2018-11-13] MEDS ORDERED: IBUP-1542 PO (13:05)
[2018-11-13 13:45] VITALS: BP 126/68; PULSE 59; RESP 16
== END 2018-11-13 13:59 | disposition home or self-care (01) ==
LOC: E/R 08:36
DX: N45.1 Epididymitis (principal); N43.3 Hydrocele, unspecified; K59.00 Constipation, unspecified; K57.30 Diverticulosis of large intestine without perforation or abscess without bleeding; I10 Essential (primary) hypertension; E11.9 Type 2 diabetes mellitus without complications; E66.9 Obesity, unspecified; F17.210 Nicotine dependence, cigarettes, uncomplicated; Z68.42 Body mass index [BMI] 45.0-49.9, adult
CPT/HCPCS: 74177; 76870; 80053; 81003; 85025; 85610; 96374; J3010; J7030; Q9967; Z7502; Z7610

== ENCOUNTER 2018-11-30 18:16 | Emergency (ER) | payer SELFPAY ==
[~2018-11-30] VITALS: Ht 180.3 cm; Wt 150.2 kg
[~2018-11-30 18:16] MED LIST changes: -CEPH-443 PO; -GABA300C16 PO; -HYDR-4011 PO; -KET2CR15 TOP; -LEVO500T48 PO; +LEVO750T25 PO; +METF100010 PO; -MTF1000T PO; +MULT-843 PO; -NYST1000 PO; -SULF1TAB31 PO; -ZOC10 PO
[2018-11-30 18:20] VITALS: BP 183/85; PULSE 97; RESP 19; Ht 180.3 cm; Wt 150.2 kg
== END 2018-11-30 18:33 | disposition left against medical advice (07) ==
LOC: FTE 18:16
DX: Z53.21 Procedure and treatment not carried out due to patient leaving prior to being seen by health care provider (principal)